=== PATIENT | male | born 1990 | race Caucasian/White ===

== ENCOUNTER 2020-11-08 09:08 | Day surgery (SDC) | payer OTHER ==
[2020-11-08 11:01] LABS: SARS-CoV-2 NAA Rapid Test Not Detected (NotDetected)
[2020-11-08] MEDS ORDERED: Lidocaine 1% (PF) 30 ML VIAL ONE (12:07)
[2020-11-08] MEDS ORDERED: Bupivacaine 0.25% HCL 30 ML VIAL ONE (12:07)
[2020-11-08] MEDS ORDERED: EPINEPHrine 1 MG/ML AMP ONE (12:07)
[2020-11-08] MEDS ORDERED: Bacitracin Zinc Ointment 30 gm TUBE ONE (13:03)
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
[2020-11-08] MEDS ORDERED: HYDROcodone/Acetaminophen 5/325 mg Tablet ONE (15:08)
== END 2020-11-08 15:23 | disposition home or self-care (01) ==
LOC: SDC 09:08
PROVIDERS: ATTEND Surgery Surgery of the Hand
PROC: 0HQQXZZ Repair Finger Nail, External Approach (ICD-10-PCS; principal; 2020-11-08)
DX: S62.637A Displaced fracture of distal phalanx of left little finger, initial encounter for closed fracture (principal); S61.317A Laceration without foreign body of left little finger with damage to nail, initial encounter; X58.XXXA Exposure to other specified factors, initial encounter; Y93.9 Activity, unspecified; Y99.0 Civilian activity done for income or pay
CPT/HCPCS: J0171; J0690; J2001; S0020; U0002